=== PATIENT | female | born 1990 | race Caucasian/White ===

== ENCOUNTER 2023-12-31 22:11 | Observation (INO) | payer SELFPAY ==
[2023-12-31 16:33] VITALS: BP 158/101
[2023-12-31 17:58] LABS: % Basophils 0.2 % (0-2); % Eosinophils 0.2 % (0-6); % Immature Granulocytes 0.5 % (0-0.5); % Lymphocytes 16.9 % (20.5-51.1); % Monocytes 5.4 % (1.7-9.3); % Neutrophils 76.8 % (42.2-75.2); Absolute Immature Granulocytes 0.1 10^3/uL (0-0.05); Absolute Monocytes 0.7 10^3/uL (0.1-0.6); Absolute Neutrophils 9.3 10^3/uL (1.4-6.5); Hematocrit 39.6 % (37.0-47.0); Hemoglobin 14.3 g/dL (12.0-16.0); Mean Corp Hgb Conc. 36.1 g/dL (33.0-37.0); Mean Corpuscular Hgb 38.8 pg (27.0-31.0); Mean Corpuscular Volume 107.3 fL (81.0-99.0); Mean Platelet Volume 7.9 fL (7.4-10.4); Nucleated Red Blood Cells % 0 %; Platelet Count 341 10^3/uL (130-400); Red Blood Cell Count 3.69 10^6/uL (4.20-5.40); Red Cell Dist. Width 13.4 % (11.5-14.5); White Blood Cell Count 12.1 10^3/uL (4.8-10.8)
[2023-12-31 18:17] LABS: HCG, Serum Qualitative Screen Negative
[2023-12-31 18:23] LABS: ALT (SGPT) 19 U/L (0-35); AST (SGOT) 25 U/L (14-36); Albumin 4.2 g/dl (3.5-5.0); Alkaline Phosphatase 73 U/L (38-126); Blood Urea Nitrogen 7 mg/dl (7-17); Calcium 8.8 mg/dl (8.4-10.2); Carbon Dioxide 20 mmol/L (22-30); Chloride 109 mmol/L (98-107); Glucose 117 mg/dl (70-99); Lipase 96 U/L (23-300); Potassium 4.1 mmol/L (3.5-5.1); Sodium 135 mmol/L (135-145); Total Bilirubin 0.5 mg/dl (0.2-1.3); Total Protein 7.2 g/dl (6.3-8.2); eGFR > 60.00
--- NOTE | 2023-12-31 19:07 | ED.GENMED ---
History of Present Illness
General
Chief Complaint: Back Pain
Source: patient
Exam Limitations: none
Time Seen by Provider: 12/31/23 18:54
Nursing documentation reviewed up to this point in time: agreed with
Travel History
Have you had any contact with someone who has COVID-19?: No
Do you have any symptoms of coronavirus? Fever > 100 degrees, chills, cough, shortness of breath, sore throat, loss of taste or smell, muscle aches, or headache?: No
History of Present Illness
History of Present Illness:
33-year-old female presents emergency department complaining of low back pain and diffuse abdominal pain. She has nausea vomiting that she has chronically, but is worse.
Past History
Past History
ED Past Medical History: Other (Kidney stones, dental problems)
ED Past Surgical History: , Tonsilectomy and Urological
Social History
Tobacco: Smoker
Alcohol: Occasional
Drug: None
Living: with family
Review of Systems
Review of Systems
Allergies reviewed?: Yes
All Other Systems: Not applicable
Constitutional: Reports no symptoms
EENT: Reports no symptoms
Respiratory: Reports no symptoms
Cardiac: Reports no symptoms
ABD/GI: Reports abdominal pain, nausea and vomiting
: Reports flank pain
Musculoskeletal: Reports back pain
Skin: Reports no symptoms
Neurological: Reports no symptoms
Endocrine: Reports no symptoms
Hematologic/Lymphatic: Reports no symptoms
Psychiatric: Reports no symptoms
Phy Exam
Physical Exam
Physical Exam:
Physical Exam
General: no apparent distress, not acutely ill
Neck: supple. no meningeal signs. normal posterior pharynx
Heart: s1/s2 regular rate and rhythm, no murmur. equal radial
pulses.
HEENT: Pupils equal round reactive to light, EOMI
Lungs: no acute respiratory distress. clear bilaterally
Abdomen: normal bowel sounds. RLQ tenderness, no rebound or guarding. No CVAT
Neuro: alert and oriented. no focal neurological deficits cranial nerves II through XII intact
Skin: no rash
Psychiatric: well kept. interactive and cooperative
Extremities: no edema. no calf tenderness. negative homans. good distal pulses
Course
Orders/Labs/Results
Orders:
Orders
12/31/23 17:10
Test Result ONCE
12/31/23 17:50
CMP [Comprehensive Metabolic Panel] Urgent
Complete Blood Count/With Diff Urgent
HCG, Serum Qualitative Screen Urgent
Lipase Urgent
12/31/23 19:05
0.9% Sodium Chloride 1000 ml [Nss] 1,000 ml IV BOLUS
Morphine Sulfate 4 mg IV NOW STA
Ondansetron Injectable [Zofran] 4 mg IV NOW STA
12/31/23 19:06
CT Abd/pelvis W Iv Cont Urgent
Comment:
Reason For Exam: diffuse abdominal pain, back pain, n/v
12/31/23 19:13
Urinalysis Reflex To Culture Urgent
Abnormal Lab Results
12/31/23
17:50
WBC 12.1 H 10^3/uL
(4.8-10.8)
RBC 3.69 L 10^6/uL
(4.20-5.40)
MCV 107.3 H fL
(81.0-99.0)
MCH 38.8 H pg
(27.0-31.0)
Abs Immat Gran (auto) 0.1 H 10^3/uL
(0-0.05)
Absolute Neuts (auto) 9.3 H 10^3/uL
(1.4-6.5)
Absolute Monos (auto) 0.7 H 10^3/uL
(0.1-0.6)
Neutrophils % 76.8 H %
(42.2-75.2)
Lymphocytes % 16.9 L %
(20.5-51.1)
Chloride 109 H mmol/L
(98-107)
Carbon Dioxide 20 L mmol/L
(22-30)
Creatinine 0.4 L mg/dL
(0.6-1.0)
Glucose 117 H mg/dl
(70-99)
12/31/23 17:50
12/31/23 17:50
Vital Signs
Initial and Last Documented VS:
Initial Vital Signs
Temp Pulse Resp BP Pulse Ox
97.7 F 87 18 158/101 100
12/31/23 16:33 12/31/23 16:33 12/31/23 16:33 12/31/23 16:33 12/31/23 16:33
Last Documented Vital Signs
Temp Pulse Resp BP Pulse Ox
97.7 F 87 18 158/101 100
12/31/23 16:33 12/31/23 16:33 12/31/23 16:33 12/31/23 16:33 12/31/23 16:33
MDM/Problems Addressed
Differential Diagnosis Includes:
renal colic, appendicitis
MDM/Problems Addressed:
33-year-old female with acute appendicitis, no perforation. Discussed with Dr. Ennis, general surgery who will admit and take to the OR in a.m.
Chronic conditions affecting care: Asthma
*Radiology
Radiology exam reviewed: radiology read reviewed (CT abdomen pelvis shows acute appendicitis)
*Pulse Oximetry
Patient hypoxic: no
*EKG
Interpreted by ED Provider?: NA
*[facility] Service [facility] Director Interpretation
Rate: Ne[facility] Service [facility] Director- N/A
*Critical Care Note
Total Time (30-74mins, 75-104mins- exclusive of procedures): Not Applicable
Patient Management
Social determinants of health affecting care: Living situation
Discussion with other providers: Sand Caster (General surgery)
Escalation/DeEscalation of care consider admission/obs:
Admit indicated
ED Attending Note
-
Portions of this chart may have been created with voice recognition software.� Occasional wrong word or��sound alike� substitutions may have occurred due to the inherent limitations of voice recognition software.
Discharge Plan
Departure
Patient Disposition: Admit
Date of Disposition: 12/31/23
Time of Disposition: 20:11
Admit to: Med/Surg
Presentation/result/management discussed w/ accepting MD/DO: General surgery-Dr. Ennis
Patient with high blood pressure during this ER visit?: Yes
Condition: Good
Discharge Problem:
Acute appendicitis
Prescriptions:
No Action
norethindrone ac-eth estradiol [Loestrin 11/26 ()] 1 EACH tablet
1 ea PO DAILY Qty: 30 0RF
acetaminophen [Tylenol Ex Str Arthritis Pain] 500 MG tablet
1,500 mg PO QID
cephalexin [Keflex] 500 MG capsule
500 mg PO QID Qty: 28 0RF
tramadol 50 MG tablet
50 mg PO Q6HPRN PRN (Reason: PAIN) Qty: 13 0RF
ondansetron 4 MG tablet,disintegrating
4 mg PO TIDPRN PRN (Reason: nausea/vomiting) Qty: 7 0RF
Referrals:
Nicole Betancourt CRNP [Family Provider] -
Interventions
Interventions:
*Risk Screen - Suicide Last Done: 12/31/23 16:33
*Neglect/Abuse Screening Last Done: 12/31/23 16:33
*ED COVID-19 Vaccine History Last Done: 12/31/23 16:33
ED-Musculoskeletal Assessment Last Done: 12/31/23 18:00
[2023-12-31] MEDS: NSS 1000 IV (19:15)
[2023-12-31] MEDS: MORPHINE SULFATE 4 MG IV ×2 (19:16→20:36)
[2023-12-31] MEDS: ZOFRAN 4 MG IV (19:16)
[2023-12-31 20:32] LABS: Urine Albumin Trace (Neg - Trace); Urine Bilirubin Negative (Negative); Urine Character Clear (Clear); Urine Color Yellow; Urine Glucose Negative (Negative); Urine Ketone Negative (Negative); Urine Leukocyte Negative (Negative); Urine Nitrite Negative (Negative); Urine Occult Blood Trace (Negative); Urine Urobilinogen Negative (Neg - 1+)
[2023-12-31] MEDS: ZOSYN 100 IV (20:37)
[2023-12-31 20:40] LABS: Urine Bacteria Few (Negative); Urine White Cell 0-2 /HPF (0-5)
[2023-12-31 20:41] LABS: Urine Red Blood Cell 0-2 /HPF (0-2)
--- NOTE | 2023-12-31 20:46 | EDRN ---
D/T allergy history, zosyn gtt rate slowed per verbal order by Dr Regan. Pt has tolerated amoxicillin before per Dr and pt.
--- NOTE | 2023-12-31 20:50 | HPS.HSE ---
Addendum entered and electronically signed by Eulogio Ennis MD 12/31/23 23:08:
I saw and examined the patient.
The CLIENT SPECIALIST's note was reviewed and I agree with the note.
Comment:
43-year-old female with PMH of asthma, kidney stones, anxiety, chronic nausea who presents with 3 days of lower back pain and 1 day of lower abdominal pain associated with N/V, WBC 12.1, CT (personally reviewed and interpreted)�acute appendicitis
with appendix dilated to 12 mm with likely appendicolith at the base, no evidence of perforation
� Discussed the pathophysiology of acute appendicitis and the treatment options, including surgery versus antibiotics and the risks with each; due to the recurrence with antibiotics, I recommended appendectomy; patient agreeable to move forward with
surgery
� Keep n.p.o. with IV fluids
� Pain control with Toradol and Dilaudid as needed
� Continue IV Zosyn
� Okay for Lovenox for DVT PPx
� Zofran as needed for history of chronic nausea
� OOB/IS
Original Note:
Family Physician
-
Family Physician: JAMES Polanco
Chief Complaint
-
' abdomen pain, mid back pain'
History of Present Illness
33 y/o patient presents to ER with the c/o of mid lower back pain and diffuse abdomen pain currently 05/16. States she started with lower back pain on Tuesday, and started with abdomen pain since yesterday. Reports nausea and vomiting yellow bile
whole day today. States she has chills but has not checked temperature. Last Bowel movement 12/30, no blood noted, + Belching, +Flatus. Denies any chest pain, or shortness of breath at present, Afebrile. Has hx of chronic nausea for 12 years and is
on Zofran as needed.
Medical History
Past Medical History
Past Medical History: Reports None
Past Surgical History: Reports Tonsilectomy
Additional Past Surgical History:
kidney stones removal
x 1
Social History
Tobacco: Smoker
Alcohol: None
Drug: None
Family History
Family History: Not pertinent
Allergies / Home Medications
Allergies reflects when Allergies were last updated in [facility].
Home Medications with original date entered in [facility]
Allergy/Medication List:
Allergies
Allergy/AdvReac Type Severity Reaction Status Date / Time
clindamycin Allergy Mild Hives Verified 12/31/23 20:36
doxycycline Allergy Hives Verified 12/31/23 20:36
Penicillins Allergy Hives Verified 12/31/23 20:36
Sulfa (Sulfonamide Allergy Swelling Verified 12/31/23 20:36
Antibiotics)
ruthie family Allergy lethargic, Uncoded 12/31/23 20:36
n/v,
swelling,
Home Medications
ondansetron 8 mg disintegrating tablet 8 mg PO Q8H PRN nausea 12/31/23
Review of Systems
-
History Source: Patient
A 12 point ROS was completed and negative except as noted: Yes
Constitutional: Reports No Symptoms
EENT: Reports No Symptoms
Respiratory: Reports No Symptoms
Cardiac: Reports No Symptoms
Abdomen/GI: Reports Abdominal Pain, Nausea and Vomiting
: Reports No Symptoms
Musculoskeletal: Reports No Symptoms
Skin: Reports No Symptoms
Neurological: Reports No Symptoms
Endocrine: Reports No Symptoms
Hematologic/Lymphatic: Reports No Symptoms
Psych: Reports No Symptoms
Physical Exam
Vital Signs
Vital Signs
Temp Pulse Resp BP Pulse Ox
97.7 F 87 18 158/101 100
12/31/23 16:33 12/31/23 16:33 12/31/23 16:33 12/31/23 16:33 12/31/23 16:33
Physical Exam
General: Well Developed and Well Nourished
HEENT: NormoCephalic and Moist mucous membranes
Respiratory: Clear and Non Labored Respirations
Cardiac: S1/S2 and Regular Rhythm
Breast: Deferred by me
GI: Soft, Non Distended, Normal Bowel Sounds and Tender (Tender to palpate, + psoas)
Rectal: Deferred by Provider
Genito-urinary: Deferred by me
Musculoskeletal: No Clubbing, No Cyanosis and No Edema
Skin: Warm and Dry
Neuro: Awake, Alert, AO x 3 and Nonfocal/grossly intact
Hematologic/Lymphatic: No Lymphadenopathy
Psych: Calm and Intact Judgment/Insight
Laboratory Results
-
12/31/23 17:50
12/31/23 17:50
Laboratory Results
Total Bilirubin 0.5 mg/dl (0.2-1.3) 12/31/23 17:50
AST 25 U/L (14-36) 12/31/23 17:50
ALT 19 U/L (0-35) 12/31/23 17:50
Alkaline Phosphatase 73 U/L (38-126) 12/31/23 17:50
Lipase 96 U/L (23-300) 12/31/23 17:50
Data Reviewed
-
CT Scan: Report Reviewed by me
Lab Data: Labs Reviewed by me
Impression/Plan
-
33 y/o patient with diffuse abdomen pain
# Abdomen pain likely due to Appendicitis
-WBC 12.1
-CT abd/pelvis: Mild/early appendicitis. No perforation.
-continue IV morphine
-Continue IV fluids
-Continue IV Zofran
-Continue IV Zosyn
-NPO MN for possible OR
-Admit to Dr. Ennis
DVT prophylaxis: SCD's
Full code
[2023-12-31 21:43] VITALS: BP 114/80
--- NOTE | 2023-12-31 22:00 | PTCARENOTE ---
patient arrived to 2 south from ED, AAOx3, pleasant. patient oriented to room and able to make needs known. pain at acceptable level at this time.
--- NOTE | 2023-12-31 22:09 | EDRN ---
This RN asked the patient what other drug resistant organisms that she was diagnosed with. The patient stated 'what are you talking about? 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
notified.
[2023-12-31 22:26] VITALS: BMI 42.5
[2023-12-31 22:28] VITALS: BP 131/81
[2023-12-31] MEDS: NORMOSOL-R 1000 IV (23:01)
[2023-12-31] MEDS: LOVENOX 40 MG SC (23:08)
[2023-12-31 23:55] VITALS: BP 140/88
[2024-01-01] VITALS (8 sets, daily range): BP systolic 97–127; BP diastolic 60–74
[2024-01-01] MEDS: ZOSYN 100 IV ×2 (02:05→07:34)
[2024-01-01] MEDS: DILAUDID 0.5 MG IV (02:13)
[2024-01-01 05:20] LABS: APTT 42.7 Sec (23.4-35.0)
[2024-01-01] MEDS: TORADOL 15 MG IV ×2 (05:44→12:57)
[2024-01-01] MEDS: ZOFRAN 4 MG IV (05:45)
[2024-01-01] MEDS: DILAUDID 1 MG IV (07:38)
--- NOTE | 2024-01-01 10:01 | PTCARENOTE ---
Patient to OR holding for procedure
--- NOTE | 2024-01-01 12:21 | W.IMMPOSTOP ---
Surgical Immed Post Op Note
-
Primary Surgeon: Eulogio Ennis MD
Assisting Surgeon: None
Pre-op Diagnosis: Acute appendicitis
Post-op Diagnosis: Acute appendicitis
Procedure Performed: Laparoscopic appendectomy
Anesthesia Type: General anesthesia
Specimen / Cultures: None
Estimated Blood Loss: 15 mL
Complications: None
Operative Findings: Inflamed, edematous appendix without evidence of perforation, small amount of clear ascites in the pelvis
Disposition: Okay for regular diet and discharge this evening if tolerating
--- NOTE | 2024-01-01 12:23 | OR.RPT ---
Operative Report
Operative Report
DATE OF OPERATION: 01/01/2024
SURGEON: Eulogio Ennis MD
PREOPERATIVE DIAGNOSIS: Acute appendicitis
POSTOPERATIVE DIAGNOSIS: Acute non-perforated appendicitis
OPERATION: Laparoscopic appendectomy
ASSISTANTS:
1. None
ANESTHESIA: Geta
ESTIMATED BLOOD LOSS: 15 mL
FINDINGS:
1. Appendix appeared injected and inflamed without evidence of perforation
2. Small amount of clear ascites in the pelvis
SPECIMENS:
1. Appendix
DRAINS: None
COMPLICATIONS: No immediate complications.
INDICATIONS: The patient is a 33-year-old female who presented with lower back pain for 3 days and lower abdominal pain for 1 day. A WBC was 12.[address] showed a dilated and inflamed appendix up to 12 mm associated with appendicolith. Therefore, I
recommended appendectomy. The operation was discussed with the patient in detail, including the risks, benefits and alternatives. Risks described included, but not limited to, bleeding, infection, damage to nearby structures (i.e., bowel, bladder,
epigastric vessels), recurrence, conversion to open, and anesthetic risks. The patient understood and agreed to proceed. The consent was signed and placed in the chart.
PROCEDURE IN DETAIL: The patient was taken to the operating room and placed on the operating table in supine position. Sequential compression devices were placed bilaterally. General anesthesia was then induced and the patient was intubated without
complication. The patient was secured to the bed with one seatbelt, the right arm secured to the armboard and the left arm was tucked. Duncan catheter was placed with sterile technique. The patient recently received IV Zosyn pre-incision. The
abdomen was then prepped and draped in the usual sterile fashion. A time-out was then performed verifying the correct patient, procedure, operative site, positioning, and special equipment.
An 11 blade scalpel was used to make a curvilinear infraumbilical incision about 1.5 cm in length. This was taken down to the level of the fascia using Bovie electrocautery and blunt dissection with S-retractors. The fascia was then grasped with
Edgard clamps and elevated. A 15 blade was used to incise the fascia. A Bibi clamp was introduced and used to spread the fascia. Hemostat clamps were used to grasp and elevate the peritoneum. A Metzenbaum scissors was used to incise the
peritoneum taking care to avoid injury to intra-abdominal structures. Abdominal entry was confirmed visually and a finger was used to ensure no nearby adhesions. The 12 mm balloon-tipped Dominic port was then inserted and the balloon insufflated
with 20 mL of air. The abdomen was insufflated to a pressure of 12 mmHg. The patient tolerated insufflation well. A 10-30 laparoscope was inserted and the abdomen inspected. No injury was noted from initial abdominal entry. The appendix was
extending toward the midline with light adhesions to the anterior abdominal wall. Two more 5 mm ports were placed under direct visualization in the left lower quadrant and the suprapubic region, taking care to avoid any injury to the epigastric
vessels and the bladder respectively. The patient was then placed in Trendelenburg position with the right side up. A grasper was inserted and the appendix was easily taken down from the anterior abdominal wall with blunt dissection.
Then, two atraumatic graspers were used to sweep the small bowel to the left upper quadrant and identify the cecum, terminal ileum and appendix. The appendix was inflamed and dilated. There was no evidence of perforation. The appendix was grasped
and elevated to expose the mesoappendix, which was serially ligated to the base of the appendix with the LigaSure. With the appendix freely mobile, I switched to the 5-30 laparoscope and divided the appendix using the laparoscopic linear cutting
stapler with a 45 mm load. The appendix was placed in an Endocatch bag and placed to the side.
Hemostasis at the staple line and mesoappendix was confirmed. Attention was turned to the pelvis. There was clear ascites noted in the pelvis, which was manually suctioned with a suction tip. The mesoappendix and staple line were assessed once
more and were completely hemostatic. The LLQ and suprapubic ports were removed under direct visualization and no bleeding was noted. The balloon port of the Ball trocar was deflated, the trocar removed and the appendix extracted without
difficulty. The appendix was passed off as specimen. The abdomen was allowed to collapse. The anterior fascia at the infraumbilical port site was closed with one 0-Vicryl stitch in a [id number] fashion. The skin of the ports were closed
with 4-0 Monocryl in subcuticular fashion. Due to the patient's allergy to lidocaine, no local anesthesia was used. Dermabond was used for dressing.
At this point, the procedure was complete. The patient was awoken and extubated without complication. The duncan was removed. All needle, sponge and instrument counts were reported as correct. The patient tolerated the procedure well and was
transferred to the recovery room in stable condition.
DICTATED BY: Eulogio Ennis MD
[2024-01-01] MEDS: NORMOSOL-R IV (13:08)
--- NOTE | 2024-01-01 13:36 | PTCARENOTE ---
Patient received from PACU in bed; Surgical site assessed with ANGLE SHEAR OPERATOR; Bed in lowest position, wheels locked; Call green within reach
--- NOTE | 2024-01-01 14:30 | CM ---
Reviewed the chart notes and spoke with the patient at the bedside. Patient is post-op laparoscopic appendectomy today. The patient resides with her parents and significant other in a three story home with two steps to enter. Per patient, only
DME is a nebulizer. No VN/SNF in the past. The patient confirmed her pharmacy of choice is the [facility] [address] [place] [address]. CM continues to be available to patient/family and is monitoring medical plan for needs at discharge.
Plan: Discharge to home with no anticipated needs.
--- NOTE | 2024-01-01 17:02 | W.DCSUMMARY ---
Discharge Summary
Discharge Data
Date of Admission: 12/31/23
Date of Discharge: 01/01/24
-
Pending Results: No
Hospital Course
This is a 33 yo female who presented with 3 days of lower back pain and 1 day of lower abdominal pain associated with N/V, WBC 12.1, CT imaing with acute appendicitis with appendix dilated to 12 mm with likely appendicolith at the base, no evidence
of perforation. She was taken to the OR for laparoscopic appendectomy which proceeded without complication. She was discharged to home later that night after tolerating diet and once good control of pain was achieved.
Discharge Plan
-
Patient Disposition: Home (Routine Discharge)
Discharge Diagnosis/Procedures: Appendicitis status post appendectomy
Condition: Good
Diet: As tolerated and Regular
Activity: No strenuous activity
Additional Activity: Do not lift more than 10lbs for 2-3 weeks
Driving Restrictions: No driving for 24 hours
Bathing Restrictions: OK to Shower
Activity Restrictions/Additional Instructions:
Call your surgeon if you develop nausea with vomiting, worsening abdominal pain or a fever >100.5
Referrals:
Nicole Betancourt CRNP [Family Provider] -
Eulogio Ennis MD [Active] - in two to four weeks
Prescriptions:
New
acetaminophen [acetaminophen] 325 mg tablet
650 mg PO Q4HPRN PRN (Reason: mild pain) Qty: 1 0RF
ibuprofen 200 mg tablet
400 - 600 mg PO Q6HPRN PRN (Reason: moderate pain) Qty: 1 0RF
oxycodone 5 mg tablet
5 mg PO Q4HPRN PRN (Reason: breakthrough/severe pain) Qty: 5 0RF
Continued
ondansetron 8 mg Tablet,Disintegrating
8 mg PO Q8H PRN (Reason: nausea)
Discharge Orders:
Discharge Patient (As Directed); Ordered 01/01/24
Ordered By: Nathaly Bautista
Discharge Date and Time
Discharge Date/Time: 01/01/24 17:24
== END 2024-01-01 17:24 | disposition home or self-care (01) ==
LOC: 2 SOUTH 22:11
PROVIDERS: Emergency Medicine; ADMITTING PHYSICIAN Surgery; EMERGENCY PHYSICIAN Emergency Medicine; FAMILY PHYSICIAN Nurse Practitioner Adult Health
DX: K35.80 Unspecified acute appendicitis (principal); M54.9 Dorsalgia, unspecified; F17.200 Nicotine dependence, unspecified, uncomplicated; R11.2 Nausea with vomiting, unspecified; N20.0 Calculus of kidney; R16.0 Hepatomegaly, not elsewhere classified; R10.9 Unspecified abdominal pain; Z87.442 Personal history of urinary calculi; Z88.6 Allergy status to analgesic agent; Z88.1 Allergy status to other antibiotic agents; Z88.0 Allergy status to penicillin; Z88.2 Allergy status to sulfonamides
CPT/HCPCS: 44970; 88304; 74177; 80053; 81003; 81015; 83690; 84703; 85025; 85610; 85730; 86850; 86900; 86901; 87070; 93005; 96361; 96365; 96375; 96376; 99285; 99406; G0378; Q9967